=== PATIENT | female | born 2000 | race Hispanic/Latino ===

== ENCOUNTER 2019-05-01 12:36 | Outpatient (CLI) | payer OTHER ==
[2019-05-01 13:24] VITALS: BP 103/61
== END 2019-05-01 13:55 | disposition home or self-care (01) ==
LOC: TRG 12:36
PROVIDERS: ATTEND Obstetrics & Gynecology
DX: O47.02 False labor before 37 completed weeks of gestation, second trimester (principal); Z3A.24 24 weeks gestation of pregnancy
CPT/HCPCS: 59025

== ENCOUNTER 2019-05-22 19:19 | Outpatient (CLI) | payer OTHER ==
[2019-05-22] MEDS ORDERED: LACTATED RINGERS 500 ML IV ONE (20:56)
[2019-05-22 21:26] LABS: Color,Urine Yellow (Yellow)
[2019-05-22 21:27] LABS: Bilirubin,Urine NEG (Negative); Blood,Urine SM (Negative); Mucus,Urine FEW /HPF; Protein,Urine <15 mg/dL mg/dL (Negative); Urobilinogen,Urine < 2.0 mg/dL (<2.0)
[2019-05-22 21:48] VITALS: BP 105/66
== END 2019-05-22 22:22 | disposition home or self-care (01) ==
LOC: TRG 19:19
PROVIDERS: ATTEND Obstetrics & Gynecology
DX: O26.852 Spotting complicating pregnancy, second trimester (principal); O26.892 Other specified pregnancy related conditions, second trimester; R10.2 Pelvic and perineal pain; Z3A.27 27 weeks gestation of pregnancy
CPT/HCPCS: 81001

== ENCOUNTER 2019-05-23 18:00 | Outpatient (CLI) | payer OTHER ==
[2019-05-23 18:57] LABS: Bilirubin,Urine NEG (Negative); Blood,Urine NEG (Negative); Color,Urine Yellow (Yellow); Protein,Urine <15 mg/dL mg/dL (Negative); RBC,Urine < 1.0 /HPF (0.0-6.0); Urobilinogen,Urine < 2.0 mg/dL (<2.0)
[2019-05-23 19:00] LABS: WBC,Urine < 1.0 /HPF (0.0-6.0)
[2019-05-23] MEDS ORDERED: LACTATED RINGERS 1,000 ML IV ONE (19:30)
[2019-05-23] MEDS ORDERED: TYLENOL PO ONE (19:38)
[2019-05-23] MEDS ORDERED: LACTATED RINGERS 1,000 ML IV SCH (20:00)
[2019-05-23 22:52] VITALS: BP 112/68
--- NOTE | 2019-05-24 00:03 | Ultrasound Report ---
ULTRASOUND OBSTETRIC INDICATION / CLINICAL INFORMATION: vaginal bleeding and cramping. Clinical Gestational Age (GA): 27 weeks 3 days TECHNIQUE: Transabdominal. COMPARISON: None available. FINDINGS: There is a single intrauterine . Biparietal Diameter = 6.1 cm = 24 weeks, 5 day(s). Head Circumference = 25.1 cm = 27 weeks, 2 day(s). Abdominal Circumference = 23.0 cm = 7 weeks, 2 day(s). Femur Length = 4.6 cm = 25 weeks, 1 day(s). Average Ultrasound Age (AUA) = 26 weeks, 1 day(s). Heart Rate: 159 beats per minute. Estimated Weight in grams (if calculated): 934 g +/- 1 138 g Visualized anatomy including stomach, kidneys, bladder, diaphragm, four-chamber heart, three-ve ssel umbilical cord, cord insertion site, spine and intracranial structures appear within normal limi ts. Position: breech. Cervix: closed. Length in cm (if measured): 3.3 Placenta: Posterior, right lateral, grade 1 and free of the os. Amniotic Fluid Volume: normal Amniotic Fluid Index (MITA) in cm (if calculated): 11.8. Maternal Adnexa: No significant abnormality. IMPRESSION: 1. Single, living intrauterine with estimated sonographic age of 26 weeks, 1 day(s). 2. No significant sonographic abnormality. Signer Name: Crispin Lake MD Signed: 05/23/2019 11:59 PM Workstation Name: [id number]
== END 2019-05-23 23:12 | disposition home or self-care (01) ==
LOC: TRG 18:00
PROVIDERS: ATTEND Obstetrics & Gynecology
DX: O47.02 False labor before 37 completed weeks of gestation, second trimester (principal); Z3A.27 27 weeks gestation of pregnancy
CPT/HCPCS: 59025; 76805; 81001; J7120

== ENCOUNTER 2019-05-25 12:15 | Outpatient (CLI) | payer OTHER ==
[2019-05-25 13:09] VITALS: BP 111/71
[2019-05-25] MEDS ORDERED: LACTATED RINGERS 500 ML IV ONE (13:47)
[2019-05-25 14:10] LABS: Bacteria,Urine 1+ /HPF (Negative); Bilirubin,Urine NEG (Negative); Blood,Urine NEG (Negative); Color,Urine Yellow (Yellow); Mucus,Urine FEW /HPF; Protein,Urine <15 mg/dL mg/dL (Negative); Urobilinogen,Urine < 2.0 mg/dL (<2.0); WBC,Urine < 1.0 /HPF (0.0-6.0)
== END 2019-05-25 16:40 | disposition home or self-care (01) ==
LOC: TRG 12:15
PROVIDERS: ATTEND Obstetrics & Gynecology
DX: O60.02 Preterm labor without delivery, second trimester (principal); Z3A.27 27 weeks gestation of pregnancy
CPT/HCPCS: 81001; J7120

== ENCOUNTER 2019-08-02 09:44 | Outpatient (CLI) | payer OTHER ==
[2019-08-02 10:02] VITALS: BP 137/86
[2019-08-02] MEDS ORDERED: NITRAZINE (URINE TESTING PAPER) MC ONE (11:16)
--- NOTE | 2019-08-02 13:24 | Ultrasound Report ---
ULTRASOUND BIOPHYSICAL PROFILE INDICATION / CLINICAL INFORMATION: QUESTIONABLE LEAKING AMNIOTIC FLUID. COMPARISON: None available. FINDINGS: BREATHING MOVEMENT = 2 GROSS BODY MOVEMENT = 2 TONE = 2 QUALITATIVE AMNIOTIC FLUID VOLUME = 2 TOTAL BIOPHYSICAL SCORE = 8/8 AMNIOTIC FLUID INDEX (cm) = 12.9 PRESENTATION: Breech. HEART RATE (beats per minute): 146 IMPRESSION: 1. biophysical profile = 8/8 2. Normal amniotic fluid volume. 3. presentation is breech. Signer Name: Joe West MD Signed: 08/02/2019 1:19 PM Workstation Name: [id number]
== END 2019-08-02 13:11 | disposition home or self-care (01) ==
LOC: TRG 09:44
PROVIDERS: ATTEND Obstetrics & Gynecology
DX: O32.1XX0 Maternal care for breech presentation, not applicable or unspecified (principal); O47.1 False labor at or after 37 completed weeks of gestation; Z3A.37 37 weeks gestation of pregnancy
CPT/HCPCS: 76815; 76819

== ENCOUNTER 2019-08-13 05:41 | Inpatient (IN) | payer OTHER ==
[2019-08-13] MEDS ORDERED: BICITRA ORAL LIQD 30ML PO ONE (06:22)
[2019-08-13] MEDS ORDERED: METOCLOPRAMIDE 10 MG/2 ML INJ IV ONE (06:22)
[2019-08-13] MEDS ORDERED: FAMOTIDINE 20 MG/2 ML INJ IV ONE (06:22)
[2019-08-13] MEDS ORDERED: ceFAZolin/Water 2 GM/20 ML 2 GM/20 ML SYRINGE IV ONE (06:46)
[2019-08-13] MEDS ORDERED: LACTATED RINGERS 1,000 ML IV SCH (07:00)
[2019-08-13] MEDS ORDERED: OXYTOCIN 20 UNIT/1000ML DRIP 20 UNITS/1,000 ML BAG IV SCH ×2 (07:00→11:00)
--- NOTE | 2019-08-13 07:41 | History and Physical Report ---
History of Present Illness Date of examination: 08/13/19 Date of admission: 08/13/19 05:41 Chief complaint: C Section History of present illness: Pt is a 18yo WF EDC 08/19/19; EGA 39 1/7 weeks presents for a C Section due to persistent breech presentation. She received care at [facility] since 9 weeks and course has been unremarkable. records are available and GBS is Negative. Past History Past Medical History: no pertinent history Past Surgical History: no surgical history Family/Genetic History: none Social history: no significant social history, single - Obstetrical History Expected Date of Delivery: 08/19/19 Actual Gestation: 39 Week(s) 1 Day(s) : 2 Medications and Allergies Allergies Allergy/AdvReac Type Severity Reaction Status Date / Time No Known Allergies Allergy Verified 05/23/19 18:28 Home Medications Medication Instructions Recorded Confirmed Last Taken Type Loratadine 1 tab PO DAILY 05/22/19 05/23/19 05/21/19 22:00 History Pnv Plus Multivit Tab 1 tab PO DAILY 05/22/19 05/23/19 05/21/19 22:00 History Active Meds: Active Medications Cefazolin Sodium (Ancef/Sterile Water 2 Gm/20 Ml) 2 gm IV PREOP NR Stop: 08/13/19 16:00 Oxytocin/Sodium Chloride (Pitocin/Ns 20 Unit/1000ml Drip) 20 units in 1,000 mls @ 0 mls/hr IV TITR SHANIKA Lactated Ringer's (Lactated Ringers) 1,000 mls @ 2,250 mls/hr IV PREOP SHANIKA Stop: 08/14/19 07:27 Review of Systems All systems: negative - Physical Exam Breasts: Positive: deferred Cardiovascular: Regular rate Lungs: Positive: Clear to auscultation Abdomen: Positive: normal appearance Genitourinary (Female): Positive: normal external genitalia Vagina: Positive: normal moisture Uterus: Positive: enlarged Extremities: Positive: normal - Obstetrical FHR: category 1 Uterine Contraction Monitor Mode: External Uterine Contraction Pattern: Absent Results Result Diagrams: 08/13/19 07:55 All other labs normal. Ultrasound: report reviewed (Breech) Assessment and Plan - Patient Problems (1) 39 weeks gestation of Onset Date: 08/13/19 Current Visit: Yes Status: Acute Plan to address problem: A: IUP @ 39 1/7 weeks Breech presentation P: Admit to L&D for Primary C Section (2) Breech presentation Onset Date: 08/13/19 Current Visit: Yes Status: Acute Qualifiers: Fetus number: single or unspecified fetus Qualified Code(s): O32.1XX0 - Maternal care for breech presentation, not applicable or unspecified
[2019-08-13] MEDS ORDERED: NALOXONE 0.4 MG/1 ML INJ IV PRN ×2 (07:56→10:06)
[2019-08-13] MEDS ORDERED: HYDROmorphone 1 MG/1 ML INJ IV PRN (07:56)
[2019-08-13] MEDS ORDERED: ONDANSETRON 4 MG/2 ML INJ IV PRN (07:56)
[2019-08-13] MEDS ORDERED: PROMETHAZINE 25 MG TAB PO PRN (07:56)
[2019-08-13] MEDS ORDERED: PROMETHAZINE 25 MG RECT SUPP PR PRN (07:56)
--- NOTE | 2019-08-13 07:56 | Anesthesia Consultation ---
Anesthesia Consult and Med Hx Date of service: 08/13/19 - Airway Anesthetic Teeth Evaluation: Good ROM Head & Neck: Adequate Mental/Hyoid Distance: Adequate Mallampati Class: Class II Intubation Access Assessment: Good - Pulmonary Exam CTA: Yes - Cardiac Exam Cardiac Exam: RRR - Pre-Operative Health Status ASA Pre-Surgery Classification: ASA1 Proposed Anesthetic Plan: Spinal - Pulmonary Hx Asthma: No - Cardiovascular System Hx Hypertension: No - Central Nervous System Hx Seizures: No Hx Psychiatric Problems: No - Endocrine Hx Renal Disease: No Hx Hypothyroidism: No Hx Hyperthyroidism: No - Hematic Hx Anemia: No Hx Sickle Cell Disease: No - Other Systems Hx Alcohol Use: No
--- NOTE | 2019-08-13 07:58 | Anesthesia Day of Surgery ---
Anesthesia Day of Surgery - Day of Surgery Patient Examined: Yes Patient H&P Reviewed: Yes Patient is NPO: Yes
[2019-08-13] MEDS ORDERED: fentaNYL-BUPIV 2 MCG/ML-0.125% 200 MCG/100 ML BAG EPIDURAL SCH (08:00)
[2019-08-13] MEDS ORDERED: ceFAZolin/STERILE WATER 2 GM/20 ML SYRINGE IV NR (08:00)
[2019-08-13 08:29] LABS: Basophils % (Auto) 0.3 % (0.0-1.8); Eosinophils # (Auto) 0.1 K/mm3 (0.0-0.4); Eosinophils % (Auto) 0.7 % (0.0-4.3); Hematocrit 34.3 % (30.3-42.9); Hemoglobin 11.8 gm/dl (10.1-14.3); Lymphocytes # (Auto) 2.5 K/mm3 (1.2-5.4); Lymphocytes % (Auto) 29.7 % (13.4-35.0); Mean Corpuscular HGB Conc 35 % (30-34); Mean Corpuscular Volume 91 fl (79-97); Monocytes # (Auto) 0.7 K/mm3 (0.0-0.8); Platelet Count 142 K/mm3 (140-440); Red Blood Count 3.78 M/mm3 (3.65-5.03); Red Cell Distribution Width 14.1 % (13.2-15.2)
[2019-08-13] MEDS ORDERED: ONDANSETRON 4 MG/2 ML INJ ONE (08:36)
[2019-08-13] MEDS ORDERED: dexAMETHasone 20 MG/5 ML VIAL ONE (08:36)
[2019-08-13] MEDS ORDERED: ceFAZolin/STERILE WATER 2 GM/20 ML SYRINGE IV ONE (09:14)
[2019-08-13] MEDS ORDERED: WATER FOR IRRIG STERILE 1,500 ML BOTTLE IR ONE (09:18)
[2019-08-13] MEDS ORDERED: SODIUM CHLORIDE 0.9% IRR 1,500 ML BOTTLE IR ONE (09:18)
[2019-08-13] MEDS ORDERED: ePHEDrine SULFATE 50 MG/1 ML INJ ONE (09:29)
[2019-08-13] MEDS ORDERED: KETOROLAC 30 MG/1 ML INJ ONE (09:39)
[2019-08-13] MEDS ORDERED: diphenhydrAMINE 50 MG/ML VIAL ONE (09:39)
--- NOTE | 2019-08-13 10:04 | Operative Report ---
Operative Report Operative Report: Date of procedure: 08/13/2019 Pre-operative diagnosis: 1. Intrauterine at 39 1/7 weeks 2. Breech presentation Post-operative diagnosis: Same Procedure name(s): Primary low transverse section Surgeon: Tay Harris MD Gritting Machine Operator: None Anesthesia: Spinal anesthesia by Reggie Gilliam CRNA EBL: 400 mL's Findings: A 3346 gm male infant Apgars 8 at 1 minute 9 at 5 minutes. Archie breech presentation. Nuchal cord 1. Normal uterus. Normal tubes and ovaries bilaterally. Procedure: After the patient was prepped and draped in usual sterile fashion, and after satisfactory level of spinal anesthesia was obtained, the skin knife was used to make a transverse skin incision. The incision was incised down to layer of the fascia, which was nicked in the midline and extended laterally using the Bovie cautery. The rectus muscles were dissected off the rectus fascia both superiorly and inferiorly. The rectus bellies in the midline, and the peritoneum was entered under direct visualization. The peritoneal incision was extended superiorly and inferiorly. A bladder flap was created and the bladder blade was then placed. The uterus was scored in a curvilinear linear fashion, entered in the midline revealing clear amniotic fluid. The 's Archie breech was delivered onto the surgical field, followed by the rest of the 's body, nuchal cord 1 easily reduced and the oropharynx and nasopharynx were bulb suctioned. The cord was doubly clamped and cut and the infant was handed to the awaiting respiratory team. Cord blood was then obtained. The placenta was manually removed from the uterus, and the uterus removed from its normal anatomical position. After gentle uterine lavage, the incision was inspected and found to be without extensions. It was then closed in 2 layers using 0 Vicryl suture in a running interlocking fashion, the second layer imbricating the first. After good hemostasis was achieved, copious amounts or irrigation was performed, and the gutters were suctioned free of blood and blood clots. The uterus was then returned to its normal anatomical position, and the peritoneum was re-approximated using 3-0 Vicryl suture in a running interlocking fashion, and then the rectus muscles were re-approximated using 3-0 Vicryl suture in a [id number] configuration. The fascia was then re-approximated using 0 Vicryl suture in running interlocking fashion. The subcutaneous layer was made hemostatic using Bovie cautery, and the skin edges re-approximated using 4-0 Vicryl suture in a sub-cuticular fashion. Patient tolerated the procedure well was transported to recovery in stable condition.
[2019-08-13] MEDS ORDERED: WITCH HAZEL/ GLYCERIN PAD TP PRN (10:06)
[2019-08-13] MEDS ORDERED: LANOLIN/ZINC/DIMETHICONE (LANSINOH) 7 GM TP PRN (10:06)
[2019-08-13] MEDS ORDERED: SIMETHICONE 80 MG CHEW TAB PO PRN (10:06)
[2019-08-13] MEDS ORDERED: ACETAMINOPHEN 325 MG TAB PO PRN (10:06)
[2019-08-13] MEDS ORDERED: HYDROcodone/ACETAMINOPHEN 5-325 MG TAB PO PRN (10:06)
[2019-08-13] MEDS ORDERED: SENNOSIDES 8.6 MG TAB PO PRN (10:06)
[2019-08-13] MEDS ORDERED: MAGNESIUM HYDROXIDE (MOM) ORAL LIQD UDC PO PRN (10:06)
--- NOTE | 2019-08-13 10:20 | Post Anesthesia Evaluation ---
- Post Anesthesia Evaluation Patient Participated: Yes Airway Patent: Yes Stable Respiratory Function: Yes Nausea/Vomiting: No Temp > 96.8F: Yes Pain Manageable: Yes Adequeate Hydration: Yes Anesthesia Complications: No Block Receding Appropriately: Yes Patient on Ventilator: No
[2019-08-13] MEDS ORDERED: FLU VACC QUAD 2019-20 (3 YR UP)/PF 60 MCG/0.5 ML SYRINGE IM ONE (12:00)
[2019-08-13] MEDS ORDERED: HYDROmorphone 1 MG/1 ML INJ ONE (13:45)
[2019-08-13] MEDS: D5W/LACTATED RINGERS 1,000 ML IV SCH ×2 (14:00→22:01)
[2019-08-13] MEDS: HYDROmorphone 1 MG/1 ML INJ IV PRN ×2 (14:00→18:47)
[2019-08-13] MEDS: ceFAZolin/NS 1 GM/50 ML 1 GM/50 ML BAG IV SCH (16:00)
[2019-08-13] MEDS: KETOROLAC 30 MG/1 ML INJ IV PRN (21:56)
[2019-08-13 22:24] LABS: Hematocrit 32.3 % (30.3-42.9); Hemoglobin 10.9 gm/dl (10.1-14.3)
[2019-08-14] MEDS: oxyCODONE /ACETAMINOPHEN 5-325MG TAB PO PRN ×3 (01:33→22:17)
[2019-08-14] MEDS: ceFAZolin/NS 1 GM/50 ML 1 GM/50 ML BAG IV SCH (01:36)
[2019-08-14] MEDS: KETOROLAC 30 MG/1 ML INJ IV PRN (04:24)
[2019-08-14] MEDS ORDERED: MEASLES, MUMPS & RUBELLA 12,500 UNIT/0.5 ML VACCINE SUB-Q ONE (06:00)
[2019-08-14] MEDS ORDERED: TETANUS,DIPH,PERTUSS(ACELL) VACCINE 0.5 ML SYRINGE IM ONE (06:00)
[2019-08-14] MEDS: PRENATAL VIT27-FE FUMARATE-FOLIC ACID VIT TAB PO SCH (13:28)
[2019-08-14] MEDS: FERROUS SULFATE 325 MG TAB PO SCH (13:28)
--- NOTE | 2019-08-14 13:43 | Progress Note ---
Assessment and Plan - Patient Problems (1) 39 weeks gestation of Onset Date: 08/13/19 Current Visit: Yes Status: Resolved (2) Breech presentation Onset Date: 08/13/19 Current Visit: Yes Status: Resolved Qualifiers: Fetus number: single or unspecified fetus Qualified Code(s): O32.1XX0 - Ma ternal care for breech presentation, not applicable or unspecified (3) Status post Onset Date: 08/14/19 Current Visit: Yes Status: Resolved Plan to address problem: A: S/P C Section - POD #1 Doing well Asymptomatic anemia - stable P: Continue RPOC Anticipate discharge in 24-48hrs Subjective - Subjective Date of service: 08/14/19 Principal diagnosis: s/p C Section - POD #1 Interval history: Pt is feeling well without complaints. She is tolerating a reg diet without nausea or vomiting, ambulating and voiding without difficulty. Patient reports: appetite normal, voiding normally, pain well controlled, flatus, ambulating normally, no dizzy ambulation, no nauseated [place]: doing well, nursing well Objective - Vital Signs Latest vital signs: Vital Signs Temp Pulse Resp BP BP Pulse Ox 08/14/19 08:05 97.9 F 81 20 129/88 08/14/19 05:15 98.3 F 76 18 114/77 95 08/14/19 01:10 98.2 F 72 20 121/85 97 08/13/19 20:52 98.3 F 79 18 123/80 97 08/13/19 16:51 98.3 F 76 20 131/87 97 Intake and Output 08/13/19 08/14/19 08/14/19 22:59 06:59 14:59 Intake Total 1170 650 120 Output Total 350 1500 Balance 820 -850 120 Intake: IV 1050 50 ANCEF/NS 1 GM/50 ML 1 gm 50 50 In 50 ml @ 100 mls/hr IV Q8H SHANIKA Rx#:[id number] D5lr 1,000 ml @ 125 mls/ 1000 hr IV DIRECT SHANIKA Rx#: [id number] Oral 120 120 Intake, Free Water 600 Output: Urine 350 1500 Indwelling Catheter 350 1500 Other: Total, Intake Amount 120 120 Total, Output Amount 350 1500 Voiding Method Toilet - Exam Breasts: Present: deferred Abdomen: Present: normal appearance, soft Uterus: Present: normal, firm, fundal height below umbilicus Extremities: Present: normal Incision: Present: normal, dry, intact
[2019-08-14] MEDS: IBUPROFEN 800 MG TAB PO PRN (17:49)
[2019-08-15] MEDS: oxyCODONE /ACETAMINOPHEN 5-325MG TAB PO PRN ×3 (04:10→16:16)
[2019-08-15] MEDS: IBUPROFEN 800 MG TAB PO PRN ×2 (07:00→20:10)
--- NOTE | 2019-08-15 08:41 | Progress Note ---
Assessment and Plan - Patient Problems (1) 39 weeks gestation of Onset Date: 08/13/19 Current Visit: Yes Status: Resolved (2) Breech presentation Onset Date: 08/13/19 Current Visit: Yes Status: Resolved Qualifiers: Fetus number: single or unspecified fetus Qualified Code(s): O32.1XX0 - Ma ternal care for breech presentation, not applicable or unspecified (3) Status post Onset Date: 08/14/19 Current Visit: Yes Status: Resolved Plan to address problem: A: S/P C Section - POD #2 Doing well Asymptomatic anemia - stable P: May go home today. Subjective - Subjective Date of service: 08/15/19 Principal diagnosis: s/p C Section - POD #2 Interval history: Pt is feeling well without complaints. She is tolerating a reg diet without nausea or vomiting, ambulating and voiding without difficulty. Patient reports: appetite normal, voiding normally, pain well controlled, flatus, ambulating normally, no dizzy ambulation, no nauseated : doing well, nursing well Objective - Vital Signs Latest vital signs: Vital Signs Temp Pulse Resp BP Pulse Ox 08/15/19 01:51 98.4 F 74 18 109/70 96 08/14/19 16:10 98.7 F 80 20 142/97 98 Intake and Output 08/14/19 08/15/19 08/15/19 22:59 06:59 14:59 Intake Total 480 240 Balance 480 240 Intake: Intake, Free Water 480 240 Other: # Voids Void 2 2 - Exam Breasts: Present: deferred Abdomen: Present: normal appearance, soft Uterus: Present: normal, firm, fundal height below umbilicus Extremities: Present: normal Incision: Present: normal, dry, intact
[2019-08-15] MEDS: PRENATAL VIT27-FE FUMARATE-FOLIC ACID VIT TAB PO SCH (10:15)
[2019-08-15] MEDS: FERROUS SULFATE 325 MG TAB PO SCH (10:15)
--- NOTE | 2019-08-15 11:53 | Discharge Summary ---
Providers - Providers Date of Admission: 08/13/19 05:41 Date of discharge: 08/15/19 Attending physician: SCAR RAJAN Primary care physician: SCAR RAJAN Hospitalization Reason for admission: section, IUP at term, other (Breech presentation) Delivery: Procedure: section, primary low transverse Episiotomy: none Laceration: none Incision: normal, dry, intact Other procedures: none complications: none Discharge diagnosis: IUP at term delivered baby: male Hospital course: Pt is a 18yo WF EDC 08/19/19; EGA 39 09/25 weeks who presented for a C Section due to persistent breech presentation. She received care at [facility] since 9 weeks and course has been unremarkable. She underwent an uncomplicated Primary C Section and post- operative course was uneventful. By POD#2 she was tolerating a reg diet without nausea or vomiting, ambulating and voiding without difficulty. She was therefore discharged to home on POD #2 in stable condition. Condition at discharge: Good Disposition: DC-01 TO HOME OR SELFCARE - Discharge Diagnoses (1) 39 weeks gestation of Status: Resolved (2) Breech presentation Status: Resolved Qualifiers: Fetus number: single or unspecified fetus Qualified Code(s): O32.1XX0 - Maternal care for breech presentation, not applicable or unspecified (3) Status post Status: Resolved Plan - Discharge Medications Prescriptions: Ferrous Sulfate [Feosol 325 MG tab] 325 mg PO BID #60 tablet Ibuprofen [Motrin 800 MG tab] 800 mg PO Q6H PRN #30 tablet PRN Reason: Pain, Mild (1-3) oxyCODONE /ACETAMINOPHEN [Percocet 5/325 mg] 1 tab PO Q6H PRN #30 tablet PRN Reason: Pain, Moderate (4-6) Vit-Fe Fumar-FA [ Vitamin] 1 each PO QDAY #30 tablet - Provider Discharge Summary Activity: routine, no sex for 6 weeks, no heavy lifting 4 weeks, no strenuous exercise Diet: routine Instructions: routine Additional instructions: [] Smoking cessation referral if applicable(refer to patient education folder for contact #) [] Refer to [facility]'s [facility] Booklet Call your doctor immediately for: * Fever > 100.5 * Heavy vaginal bleeding ( >1 pad per hour) * Severe persistent headache * Shortness of breath * Reddened, hot, painful area to leg or breast * Drainage or odor from incision. * Keep incision clean and dry at all times and follow doctor's instructions regarding bathing/showering - Follow up plan Follow up: SCAR RAJAN MD [Primary Care Provider] - 14 Days DILMA TITUS CNM [Advanced Practice Nurse] - 14 Days
[2019-08-15 19:35] VITALS: BP 111/77
== END 2019-08-15 21:30 | disposition home or self-care (01) | DRG 766 ==
LOC: APU 05:41 → OB 13:42
PROVIDERS: ADMIT Obstetrics & Gynecology; ATTEND Obstetrics & Gynecology
PROC: 10D00Z1 Extraction of Products of Conception, Low, Open Approach (ICD-10-PCS; principal; 2019-08-13)
PROC: 3E0234Z Introduction of Serum, Toxoid and Vaccine into Muscle, Percutaneous Approach (ICD-10-PCS; 2019-08-14)
PROC: 3E0134Z Introduction of Serum, Toxoid and Vaccine into Subcutaneous Tissue, Percutaneous Approach (ICD-10-PCS; 2019-08-14)
DX: O32.1XX0 Maternal care for breech presentation, not applicable or unspecified (principal); Z3A.39 39 weeks gestation of pregnancy; Z23 Encounter for immunization; Z37.0 Single live birth; O69.81X0 Labor and delivery complicated by cord around neck, without compression, not applicable or unspecified; O90.81 Anemia of the puerperium; D64.9 Anemia, unspecified
CPT/HCPCS: 36415; 85014; 85018; 85025; 86592; 86850; 86900; 86901; 90686; G0378; A6250; J0690; J1100; J1170; J1200; J1885; J2405; J2590; J2765; J7120; J7121